=== PATIENT | male | born 1955 | race Caucasian/White ===

== ENCOUNTER 2016-10-28 21:11 | Emergency (ER) | payer SELFPAY ==
[2016-10-28 21:23] VITALS: BP 128/77
[2016-10-28] MEDS ORDERED: Tetan/Diph/Pertus SYR(Tdap)* 0.5 ML SYR(BOOSTRIX) use SYR IM ONE (21:53)
[2016-10-28] MEDS ORDERED: Acetaminophen TAB* 325 MG PO ONE (21:54)
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
[2016-10-28] MEDS ORDERED: Lidocaine 1% MPF* 2 ML VIAL INJ ONE (22:09)
--- NOTE | 2016-10-29 07:31 | RAD ---
INDICATION: Head injury. COMPARISON: There are no prior studies available for comparison. TECHNIQUE: Contiguous axial sections of the brain were obtained from the skull base to the vertex without contrast. FINDINGS: The ventricles, cisterns and sulci are within normal limits. No significant focal abnormality or mass effect is seen. There is no evidence for hemorrhage. No significant focal osseous abnormality is seen. The visualized portion of the paranasal sinuses and mastoid air cells appear clear. IMPRESSION: NO EVIDENCE FOR ACUTE INTRACRANIAL ABNORMALITY.
--- NOTE | 2016-10-29 07:37 | RAD ---
INDICATION: Facial laceration over left zygomatic arch. COMPARISON: There are no prior studies available for comparison. TECHNIQUE: Contiguous axial sections of the axial images of the facial bones were obtained and reconstructed in the coronal and sagittal planes. FINDINGS: Soft tissue swelling and a small amount of air is noted adjacent to the anterior aspect of the left zygomatic arch. The lehman of the orbits and maxillary sinuses appear intact. The zygomatic arches appear intact. There is no evidence for a fracture of the mandible. The nasal bones appear intact. There is mild deviation of the nasal septum toward the left side. The pterygoid plates appear intact. There is mild mucosal thickening within the inferior portion of the left maxillary sinus and a 1.6 cm mucous retention cyst present. The paranasal sinuses otherwise appear clear. The estimated complexes appear patent on both sides. IMPRESSION: SOFT TISSUE SWELLING AND A SMALL AMOUNT OF AIR ADJACENT TO THE ANTERIOR ASPECT OF THE LEFT SIDE ZYGOMATIC ARCH, NO EVIDENCE FOR FRACTURE.
== END 2016-10-28 23:20 | disposition home or self-care (01) ==
LOC: UCEAST 21:11
DX: S01.412A Laceration without foreign body of left cheek and temporomandibular area, initial encounter (principal); W18.09XA Striking against other object with subsequent fall, initial encounter; Y93.55 Activity, bike riding; Y92.9 Unspecified place or not applicable; Y99.9 Unspecified external cause status; Z23 Encounter for immunization
CPT/HCPCS: 12011; 70450; 70486; 90471; 90715; 99211; A9270-GY; G0463